=== PATIENT | female | born 1985 | race African-American/Black ===

== ENCOUNTER 2020-03-29 17:48 | Emergency (ER) | payer OTHER ==
[~2020-03-29] VITALS: Ht 162.6 cm; Wt 104.3 kg
[2020-03-29 18:00] VITALS: BP 132/77
--- NOTE | 2020-03-29 18:02 | NUR ---
ED Nurse Note: pt walked in to ER from home due to lower back pain since yesterday. pt was tying her shoe and got up quickly and pain started. pt aao x4 and ambulatory. calm and cooperative. no cardiac or pulmonary distress noted at this time.
--- NOTE | 2020-03-29 18:10 | Emergency Room Report ---
History of Present Illness General Chief Complaint: Lower Back Pain or Injury Source: Patient Present Illness HPI 35-year-old female with no significant past medical history here complaining of left-sided low back pain after bending down trying to x2 days. Has not taken medication for symptom relief is neurovascularly intact with no denies. Denies . Denies chest pain, shortness of breath, headache and dizziness. Denies any tingling numbness sensation. Denies any pain radiation.Denies urinary symptoms. COVID-19 Screening Contact w/high risk pt: No Experienced COVID-19 symptoms?: No COVID-19 Testing performed [employer]: No Patient History Past Medical History: see triage record Past Surgical History: none Pertinent Family History: none Last Menstrual Period: 03/23/2020 Now: No Immunizations: UTD Reviewed Nursing Documentation: PMH: Agreed; PSxH: Agreed Nursing Documentation-PMH Past Medical History: No History, Except For Hx Asthma: Yes Review of Systems All Other Systems: negative except mentioned in HPI Physical Exam Vital Signs Date Time Temp Pulse Resp B/P (MAP) Pulse Ox O2 Delivery O2 Flow Rate FiO2 03/29/20 17:50 98.1 96 17 132/77 (95) 100 Room Air Sp02 EP Interpretation: reviewed, normal General Appearance: no apparent distress, alert, GCS 15, non-toxic Head: normocephalic, atraumatic Eyes: bilateral eye normal inspection, bilateral eye PERRL ENT: hearing grossly normal, normal pharynx, no angioedema, normal voice Neck: full range of motion, supple/symm/no masses Respiratory: chest non-tender, lungs clear, normal breath sounds, no rhonchi, no respiratory distress, no retraction, speaking full sentences Cardiovascular #1: regular rate, rhythm, no edema Cardiovascular #2: 2+ carotid (R), 2+ carotid (L), 2+ radial (R), 2+ radial (L), 2+ dorsalis pedis (R), 2+ dorsalis pedis (L) Gastrointestinal: non tender, soft Genitourinary: no CVA tenderness Musculoskeletal: back normal, digits/nails normal, no calf tenderness, pelvis stable, gait/station normal, non-tender Neurologic: alert, motor strength/tone normal, oriented x3, sensory intact, responsive, speech normal Psychiatric: judgement/insight normal, memory normal, mood/affect normal, no suicidal/homicidal ideation Skin: no rash Lymphatic: no adenopathy Medical Decision Making PA Attestation ALL Diagnosis and treatment plan reviewed and discussed with my supervising physician Dr. Brar Diagnostic Impression: Primary Impression: Lumbar strain ER Course 35-year-old female with no significant past medical history here complaining of left-sided low back pain after bending down trying to x2 days. Has not taken medication for symptom relief is neurovascularly intact with no denies. Denies . Denies chest pain, shortness of breath, headache and dizziness. Denies any tingling numbness sensation. Denies any pain radiation. Denies any urinary symptoms. Ddx considered but are not limited to: Lumbar spine sprain, strain, fracture, contusion, neuropathy Vital signs: are WNL, pt. is afebrile H&PE are most consistent with: Lumbar strain ORDERS: Robaxin, lidocaine patch, ibuprofen ER intervention: None DISCHARGE: At this time pt. is stable for d/c to home. Will provide printed patient care instructions, and any necessary prescriptions. Care plan and follow up instructions have been discussed with the patient prior to discharge. At this time no imaging needed patient did not fall or injure herself. Advised patient take medication as directed, follow primary care provider, if worsening symptoms return to the emergency room denies any urinary symptoms. Last Vital Signs Date Time Temp Pulse Resp B/P (MAP) Pulse Ox O2 Delivery O2 Flow Rate FiO2 03/29/20 18:00 98.1 17 132/77 100 Room Air 03/29/20 17:50 96 Disposition: HOME, SELF-CARE Condition: Stable Scripts Lidocaine Patch* (Lidoderm Patch*) 1 Each Adh..patch 1 PATCH TOPIC DAILY, #30 PATCH Patch(es) may remain in place for up to 12 hours in any 24-hour period. Prov: Mikey Maradiaga 03/29/20 Ibuprofen (Ibu) 800 Mg Tablet 800 MG PO TID, #30 TAB Prov: Mikey Maradiaga 03/29/20 Methocarbamol* (ROBAXIN-500*) 500 Mg Tablet 500 MG ORAL TID PRN for For Pain, #15 TAB 0 Refills Prov: Mikey Maradiaga 03/29/20 Patient Instructions: Lumbosacral Strain Additional Instructions: Take medication as directed, follow primary care provider, if worsening symptoms return to the emergency room Mikey Maradiaga Mar 29, 2020 18:10
[2020-03-29] MEDS ORDERED: LIDODERM700 M1 TOPIC (18:11)
[2020-03-29] MEDS ORDERED: IBU800 MG PO (18:11)
[2020-03-29] MEDS ORDERED: ROBAXIN-500MG ORAL (18:11)
[2020-03-29 18:18] VITALS: BP 132/77
--- NOTE | 2020-03-29 18:19 | NUR ---
ED Nurse Note: Pt cleared by health care Provider for discharge. DC instructions/prescription was given and explained to pt and verbalized understanding of teachings. All medical deviecs such as ID band removed. Pt is AAO x4, ambulatory and left with all personal belongings.
== END 2020-03-29 18:20 | disposition home or self-care (01) ==
LOC: EMR 18:11
DX: S39.012A Strain of muscle, fascia and tendon of lower back, initial encounter (principal); J45.909 Unspecified asthma, uncomplicated; X50.1XXA Overexertion from prolonged static or awkward postures, initial encounter; Y93.9 Activity, unspecified; Y92.9 Unspecified place or not applicable
CPT/HCPCS: 99282